=== PATIENT | female | born 1990 | race African-American/Black ===

== ENCOUNTER 2020-03-02 18:39 | Day surgery (SDC) | payer OTHER ==
[2020-03-02 19:34] VITALS: BP 113/72; TEMP 98.5; BMI 39.4
[2020-03-02] MEDS ORDERED: hydrALAZINE 20 MG/ML VIAL SLOW IVP PRN (19:57)
--- NOTE | 2020-03-02 20:00 | PDOC.FPROB ---
FMR OB H&P: HPI - History of Present Illness Chief Complaint: leaking fluid/lost mucus plug Indentification: 29 yo at 36.1 wga History of Present Illness: Patient reports she first felt some leakage of fluid this AM around 0700. Throughout the day she lost mucus and had to wear a pad. Denies vaginal bleeding, vaginal discharge. Reports hemant-garcia contractions. Endorses FM. Otherwise, has been feeling well. Primary Care Physician: Drea Lugo FMR OB H&P: Current - Care : 4 Para: [id number] Gestational age: 36.1 Due date: 03/29/2020 Course/Complications: None. Denies. - OB Labs Blood type: O RH: positive Antibody Screen: negative HIV: negative RPR: negative HepBsAg: negative Rubella: immune Quad screen: negative Urine drug screen: negative Gonorrhea: negative Chlamydia: negative Pap Smear: NILM, HPV neg GBS: unknown FMR OB H&P: History - Past Medical History PMH: Denies - OB History OB History: x3. 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 - Surgical History Sx History: Denies - Social History Social History: Denies smoking, drinking, drugs - Family History Family History: denies FMR OB H&P: Medications - Current Home Medications: Medication Instructions Recorded Confirmed Type Vit 93/Iron Fum/Folic 1 tablet PO DAILY 03/02/20 03/02/20 History [ Formula Tablet] Allergies/Adverse Reactions: Allergies Allergy/AdvReac Type Severity Reaction Status Date / Time No Known Allergies Allergy Verified 03/02/20 19:24 FMR OB H&P: ROS - Review of Systems General: denies: fever/chills Eyes: denies: vision changes ENT: denies: nasal congestion, sore throat Cardiovascular: denies: chest pain Respiratory: denies: cough Gastrointestinal: denies: abdominal pain, nausea, vomiting Genitourinary (Female): reports: vaginal discharge. denies: dysuria, vaginal pain, vaginal bleeding, contractions Musculoskeletal: denies: pain Neurologic: denies: headache Integumentary: denies: rash FMR OB H&P: Vital Signs - Maternal Vital signs: Vital Signs - First Documented Temp Pulse Resp BP Pulse Ox 98.5 F 83 16 113/72 98 03/02/20 19:22 03/02/20 19:22 03/02/20 19:22 03/02/20 19:22 03/02/20 19:22 - Heart Tones Baseline: 150 (reactive) Variability: moderate Acceleration: present Deceleration: absent [place] contractions every: none FMR OB H&P: Physical Exam - Physical Exam General: NAD, awake, alert and oriented HEENT: normocephalic and atraumatic, no scleral icterus, grossly normal vision, grossly normal hearing Neck: trachea midline Heart: RRR, normal S1/S2, no murmurs/rubs/gallops General: CTAB, no respiratory distress Abdomen: soft, gravid, non-tender Musculoskeletal: FROM in all four extremities Neurological: no focal deficit Skin: no rash Lymphatic: no unusual bruising or bleeding, no purpura Psychiatric: intact recent and remote memory, normal mood and affect - Pelvic Exam Vulva: normal hair distribution, no lesions Cervix: no masses, no lesions Deviation from normal: cervix appeared closed on speculum exam Membranes: Sterile speculum exam without pooling. Estimated Weight: 7 lbs FMR OB H&P: A/P - Problem List (1) Status: Acute Disposition: observe on L&D. If no SROM by amnisure, will d/c home. Discussion: Date/Time: 03/02/201958 29 yo at 36.1 wga: Rule out PROM - no pooling on speculum exam - amnisure collected and pending - no contractions, not in labor Multip, previously vaginal deliveries This H&P was discussed with Dr. Valente, who agrees with the above documentation and plan. Signature: Christie Caicedo MD PGY2 Addendum - Attending - Attending Attestation Date/Time: 03/03/20 0010 I personally evaluated the patient and discussed the management with Dr. Sd garcia. I agree with the History, Examination, Assessment and Plan documented above.
[2020-03-02 20:15] LABS: Amnisure Test No Membranes Rupture (No Rupture)
[2020-03-02 20:16] LABS: Amnisure Internal Control QC ACCEPTABLE (ACCEPTABLE)
--- NOTE | 2020-03-02 20:26 | PDOC.BPN ---
<Christie Caicedo - Last Filed: 03/02/20 20:25> - Brief Progress Note Encounter Date: 03/02/20 Encounter Time: 20:20 Amnisure negative. Reactive FHT. Discussed labor s/s and return precautions with the patient. Pt agrees w/ discharge home. <David Valente - Last Filed: 03/03/20 00:11> Addendum - Attending - Attending Attestation Date/Time: 03/03/20 0011 I personally evaluated the patient and discussed the management with Dr. Caicedo. I agree with the History, Examination, Assessment and Plan documented above.
== END 2020-03-02 20:31 | disposition home or self-care (01) ==
LOC: L&D/OP 18:39
PROVIDERS: ATTEND Advanced Practice Midwife
DX: O99.891 Other specified diseases and conditions complicating pregnancy (principal); N89.8 Other specified noninflammatory disorders of vagina; Z3A.36 36 weeks gestation of pregnancy; Z86.19 Personal history of other infectious and parasitic diseases
CPT/HCPCS: 84112

== ENCOUNTER 2020-03-27 11:09 | Outpatient (CLI) | payer OTHER ==
[2020-03-27 22:08] LABS: SARS-CoV-2 MS2 Positive; SARS-CoV-2 N Gene Negative; SARS-CoV-2 S Gene Negative; SARS-CoV-2 by NAA Not Detected (NotDetected); SARS-CoV-2 orf1ab Negative
== END 2020-03-27 11:10 | disposition home or self-care (01) ==
LOC: LABBT 11:09
PROVIDERS: ATTEND Advanced Practice Midwife
DX: Z20.828 Contact with and (suspected) exposure to other viral communicable diseases (principal)
CPT/HCPCS: 87635; U0003

== ENCOUNTER 2020-04-01 19:40 | Inpatient (IN) | payer OTHER ==
[2020-04-01 20:23] LABS: Amnisure Internal Control QC ACCEPTABLE (ACCEPTABLE); Amnisure Test RUPTURE DETECTED (No Rupture)
[2020-04-01 20:30] VITALS: BMI 40.3
[2020-04-01] MEDS ORDERED: HYDROcodone/Acetaminophen 5/325 mg Tablet PO PRN (21:17)
[2020-04-01] MEDS ORDERED: Ondansetron PF 4 MG/2 ML Vial IVP PRN (21:17)
[2020-04-01] MEDS ORDERED: Lidocaine 1% (PF) 30 ML VIAL SC PRN (21:17)
[2020-04-01] MEDS ORDERED: Methylergonovine 0.2 MG/ML VIAL IM PRN (21:17)
[2020-04-01] MEDS ORDERED: NS / Oxytocin 40 units/1000ml 1,000 ML IV PRN (21:17)
[2020-04-01] MEDS ORDERED: Ibuprofen 800 MG TAB PO PRN (21:17)
[2020-04-01] MEDS ORDERED: hydrALAZINE 20 MG/ML VIAL SLOW IVP PRN (21:17)
[2020-04-01] MEDS ORDERED: Butorphanol Tartrate 1 MG/ML VIAL SLOW IVP PRN (21:17)
[2020-04-01] MEDS ORDERED: Misoprostol 200 MCG TAB PR PRN (21:17)
[2020-04-01 21:45] LABS: Mean Corpuscular HGB CONC 31.5 g/dL (32.0-36.0); Mean Corpuscular Hemoglobin 28.4 pg (27.0-31.0); Mean Corpuscular Volume 90.2 fL (78.0-98.0); Mean Platelet Volume 7.7 fL (7.4-10.4); Platelet Count 204 thou/uL (130-400); RBC Distribution Width 11.6 % (11.5-14.5); Red Blood Cell (RBC) Count 4.22 mill/uL (4.20-5.40)
[2020-04-01] MEDS ORDERED: NS w/ Oxytocin 30 units 500 ML IVPB SCH (21:47)
[2020-04-01 22:18] LABS: Syphilis Antibody Nonreactive (Nonreactive); Syphilis Antibody Index 0.05 S/CO (<1.00 Non-Reactive)
[2020-04-01] MEDS: Dextrose 5%-Lactated Ringers 1,000 ML IV SCH (23:18)
[2020-04-01 23:20] LABS: HBSAg Index 0.12 S/CO (0-0.99); Hep B Surf Ag Non-Reactive S/CO (NonReactive)
[2020-04-02] MEDS ORDERED: DISCONTINUE ALL PREVIOUS NARCOTICS FS SCH (01:15)
[2020-04-02] MEDS ORDERED: Bupivacaine 0.5% 20 ML, fentaNYL Citrate/PF 400 MCG in Sodium Chloride 0.9% 72 ML EPIDURAL SCH (01:15)
[2020-04-02] MEDS ORDERED: Naloxone HCl 0.4 mg/ml Vial IVP PRN ×2 (01:44)
[2020-04-02] MEDS ORDERED: Ondansetron PF 4 MG/2 ML Vial IVP PRN ×2 (01:44→08:05)
[2020-04-02] MEDS ORDERED: Lactated Ringer's 500 ML IV PRN (01:44)
[2020-04-02] MEDS ORDERED: diphenhydrAMINE 50 MG/ML VIAL IVP PRN (01:44)
[2020-04-02] MEDS ORDERED: Promethazine HCl 25 MG/ML VIAL IM PRN (01:44)
[2020-04-02] MEDS ORDERED: Acetaminophen 325 MG TAB PO PRN (01:44)
[2020-04-02] MEDS ORDERED: Fentanyl 4 mcg/Bupivacaine 0.1% Cassette 100 ML EPIDURAL SCH (01:45)
[2020-04-02] MEDS ORDERED: Communication Order-Pharmacy FS SCH (01:45)
[2020-04-02] MEDS: Dextrose 5%-Lactated Ringers 1,000 ML IV SCH (07:45)
[2020-04-02] MEDS ORDERED: Adacel (T-DAP) 0.5 ML SYRINGE IM ONE (08:05)
[2020-04-02] MEDS ORDERED: NS / Oxytocin 40 units/1000ml 1,000 ML IV SCH (08:05)
[2020-04-02] MEDS ORDERED: Milk Of Magnesia 30 ML UDCUP PO PRN (08:05)
[2020-04-02] MEDS ORDERED: diphenhydrAMINE 25 MG CAP PO PRN (08:05)
[2020-04-02] MEDS ORDERED: hydrALAZINE 20 MG/ML VIAL SLOW IVP PRN (08:05)
[2020-04-02] MEDS ORDERED: Lanolin Ointment 7 GM TUBE TOP PRN (08:05)
[2020-04-02] MEDS ORDERED: Bisacodyl 10 MG SUPP PR PRN (08:05)
--- NOTE | 2020-04-02 08:10 | DN ---
DATE OF PROCEDURE: 04/02/2020 The patient delivered a female on 04/02/2020 at 0527 hours by an uncomplicated term spontaneous vaginal delivery. Gestational age is 40 weeks and 4 days. weight is 2999 g. Apgars are 8 and 9. Placenta delivered spontaneously followed by Pitocin infusion. There were no lacerations. Quantitative blood loss was [address] Mercer is delivering physician. There were no complications. Counts were correct. Mother and baby are stable in the room in the immediate . Job ID: [id number] [facility]
[2020-04-02] MEDS: Docusate Calcium (SURFAK) 240 MG CAP PO SCH ×2 (10:04→22:47)
[2020-04-02] MEDS: Prenatal Vitamin 1 TAB PO SCH (10:04)
[2020-04-02] MEDS: Ibuprofen 800 MG TAB PO SCH ×2 (14:16→22:47)
[2020-04-02] MEDS: Ferrous Sulfate 325 MG TAB PO SCH (16:51)
[2020-04-03] MEDS: Ibuprofen 800 MG TAB PO SCH (05:33)
--- NOTE | 2020-04-03 05:43 | PDOC.PP ---
Post Progress Note Post Day #: 1 from Subjective: Doing well, states concerned about baby spitting up "amniotic fluid". Otherwise well and would like to go home today if able. PO intake tolerated: yes Flatus: yes Ambulation: yes Vital Signs (12 hours) Temp Pulse Resp BP 04/03/20 00:15 97.8 F 71 15 90/50 L 04/02/20 20:40 97.8 F 69 18 112/66 Weight Weight 235 lb Past vitals reviewed from overnight. No HTN, no tachycardia - Physical Examination General: NAD Respiratory: non-labored breathing Abdominal: no distention, appropriately TTP Skin: no rash Neurological: no gross focal deficits Psychiatric: A&Ox3, normal affect Result Diagrams: 04/01/20 21:29 Additional Labs: Post Labs Hep Bs Antigen Non-Reactive S/CO (NonReactive) 04/01/20 21:29 Blood Type O POSITIVE 04/01/20 23:12 (1) Vaginal delivery Code(s): O80 - ENCOUNTER FOR FULL-TERM UNCOMPLICATED DELIVERY Status: Acute - Assessment/Plan PPD1 now, doing well. If baby cleraed for DC homw today we will have mom discharged at noon. Follow up as scheduled with gen barone within 3 weeks.
[2020-04-03 07:42] VITALS: BP 104/63; TEMP 98
[2020-04-03 08:28] LABS: Hemoglobin 11.6 g/dL (12.0-16.0); Mean Corpuscular HGB CONC 34.4 g/dL (32.0-36.0); Mean Corpuscular Hemoglobin 31.3 pg (27.0-31.0); Mean Platelet Volume 7.2 fL (7.4-10.4); Platelet Count 174 thou/uL (130-400); RBC Distribution Width 11.7 % (11.5-14.5); White Blood Cell (WBC) Count 8.5 thou/uL (4.8-10.8)
[2020-04-03] MEDS: Prenatal Vitamin 1 TAB PO SCH (09:29)
[2020-04-03] MEDS: Docusate Calcium (SURFAK) 240 MG CAP PO SCH (09:29)
[2020-04-03] MEDS: Ferrous Sulfate 325 MG TAB PO SCH (09:29)
== END 2020-04-03 11:47 | disposition home or self-care (01) | DRG 807 ==
LOC: L&D/OP 19:40 → L&D 20:53 → 3SW 04-02 08:22
PROVIDERS: ADMIT Obstetrics & Gynecology; ATTEND Obstetrics & Gynecology
PROC: 10E0XZZ Delivery of Products of Conception, External Approach (ICD-10-PCS; principal; 2020-04-02)
DX: O80 Encounter for full-term uncomplicated delivery (principal); Z37.0 Single live birth; Z3A.40 40 weeks gestation of pregnancy; Z20.828 Contact with and (suspected) exposure to other viral communicable diseases
CPT/HCPCS: 36415; 51702; 84112; 85027; 86780; 86850; 86900; 86901; 87340; 99285; J2405; J2590; J3010; J3490